=== PATIENT | male | born 1930 | race Caucasian/White ===

== ENCOUNTER 2017-11-09 13:42 | Observation (INO) | payer MEDICARE ==
[~2017-11-09] VITALS: Ht 175.3 cm; Wt 90.5 kg
[2017-11-09] VITALS (8 sets, daily range): BP systolic 119–141; BP diastolic 61–75; PULSE 59–100; RESP 16–18; TEMP 97.2–97.9; O2SAT 96–100
[~2017-11-09 13:42] MED LIST: ASPI81TA82 PO; AUGM875T PO; COEN100C5 PO; FISH1000 PO; LISI-363 PO; PARO20TA PO; PRAV10 PO; TAB-TAB PO; VITA250L PO
--- NOTE | 2017-11-09 14:34 | PD ---
HPI Chief Complaint: General Weakness Time Seen by Provider: 13:58 Travel History International Travel<30 days: No Contact w/Intl Traveler<30days: No Traveled to known affect area: No History of Present Illness HPI 87-year-old male with a history of hypertension, macular degeneration presents emergency department complaining of diffuse weakness that is been persistent for 2 weeks. Patient states that he was taking the trash out this morning and his legs felt weak and he "could not take it anymore". states that patient has had shuffling feet when walking and he has been falling asleep more frequently. states that he has lost interest in TV when he used to be " all about the TV". Patient states that this is secondary to his macular degeneration and cannot see the television. States he is okay with his ADLs but if he is working around the house for 5 minutes he gets for out I must sit down. states that patient does snore and she has noticed that he has been breathing hard for 2 months. Says that he sleeps frequently throughout the day and so does not sleep at night frequently. He takes paroxetine for mood and hydrochlorothiazide/lisinopril for blood pressure. Denies any cardiac history. Denies pulmonary history. Says that [facility] and his primary care physician is Dr. Vela. Patient last saw his primary care physician in June. PFSH Past Medical History Anxiety: Yes Depression: Yes High Cholesterol: Yes Hypertension: Yes Past Surgical History Abdominal Surgery: Yes (BILAT HERNIAS) Appendectomy: Yes Eye Surgery: Yes (IMPLANT LENS) Pacemaker: No Social History Alcohol Use: No Tobacco Use: No Substance Use: No Allergies-Medications (Allergen,Severity, Reaction): Coded Allergies: No Known Allergies (Unverified Adverse Reaction, Unknown, 11/09/17) Reported Meds & Prescriptions Reported Meds & Active Scripts Active Reported Lisinopril-Hctz 20-12.5 Mg Tab 1 Tab PO DAILY Paxil (Paroxetine HCl) 40 Mg Tablet Review of Systems Except as stated in HPI: all other systems reviewed are Neg Physical Exam Narrative GENERAL: wd, wn in NAD, hard of hearing SKIN: Focused skin assessment warm/dry. HEAD: Atraumatic. Normocephalic. EYES: Pupils equal and round. No scleral icterus. No injection or drainage. PERRLA ENT: No nasal bleeding or discharge. Mucous membranes pink and moist. NECK: Trachea midline. No JVD. CARDIOVASCULAR: Regular rate and rhythm. No murmur appreciated. RESPIRATORY: No accessory muscle use. Clear to auscultation. Breath sounds equal bilaterally. GASTROINTESTINAL: Abdomen soft, non-tender, nondistended. Hepatic and splenic margins not palpable. MUSCULOSKELETAL: No obvious deformities. No clubbing. No cyanosis. No edema. NEUROLOGICAL: Awake and alert. No obvious cranial nerve deficits. Motor grossly within normal limits. Normal speech. Grade 5/5 upper and lower extremities PSYCHIATRIC: Appropriate mood and affect; insight and judgment normal. Data Data Last Documented VS Vital Signs Date Time Temp Pulse Resp B/P (MAP) Pulse Ox O2 Delivery O2 Flow Rate FiO2 11/09/17 17:26 85 119/61 (80) 11/09/17 13:58 18 96 Room Air 11/09/17 13:46 97.2 Orders Orders Electrocardiogram (11/09/17 14:24) Complete Blood Count With Diff (11/09/17 14:24) Comprehensive Metabolic Panel (11/09/17 14:24) Magnesium (Mg) (11/09/17 14:24) Act Partial Throm Time (Ptt) (11/09/17 14:24) Prothrombin Time / Inr (Pt) (11/09/17 14:24) Urinalysis - C+S If Indicated (11/09/17 14:24) Chest, Single Ap (11/09/17 14:24) Ct Brain W/O Iv Contrast(Rout) (11/09/17 ) Sodium Chlorid 0.9% 500 Ml Inj (Ns 500 M (11/09/17 14:45) Orthostatic Vital Signs (11/09/17 17:10) Admit Order (Ed Use Only) (11/09/17 18:16) Labs Laboratory Tests Test 11/09/17 14:45 11/09/17 15:39 White Blood Count 4.7 TH/MM3 Red Blood Count 4.24 MIL/MM3 Hemoglobin 10.1 GM/DL Hematocrit 30.7 % Mean Corpuscular Volume 72.4 FL Mean Corpuscular Hemoglobin 23.7 PG Mean Corpuscular Hemoglobin Concent 32.7 % Red Cell Distribution Width 18.6 % Platelet Count 315 TH/MM3 Mean Platelet Volume 7.1 FL Neutrophils (%) (Auto) 60.2 % Lymphocytes (%) (Auto) 23.6 % Monocytes (%) (Auto) 11.0 % Eosinophils (%) (Auto) 4.1 % Basophils (%) (Auto) 1.1 % Neutrophils # (Auto) 2.8 TH/MM3 Lymphocytes # (Auto) 1.1 TH/MM3 Monocytes # (Auto) 0.5 TH/MM3 Eosinophils # (Auto) 0.2 TH/MM3 Basophils # (Auto) 0.1 TH/MM3 CBC Comment DIFF FINAL Differential Comment Prothrombin Time 9.9 SEC Prothromb Time International Ratio 1.0 RATIO Activated Partial Thromboplast Time 25.9 SEC Blood Urea Nitrogen 28 MG/DL Creatinine 1.40 MG/DL Random Glucose 96 MG/DL Total Protein 6.9 GM/DL Albumin 3.3 GM/DL Calcium Level 8.7 MG/DL Magnesium Level 2.3 MG/DL Alkaline Phosphatase 76 U/L Aspartate Amino Transf (AST/SGOT) 42 U/L Alanine Aminotransferase (ALT/SGPT) 49 U/L Total Bilirubin 0.3 MG/DL Sodium Level 137 MEQ/L Potassium Level 3.8 MEQ/L Chloride Level 102 MEQ/L Carbon Dioxide Level 24.2 MEQ/L Anion Gap 11 MEQ/L Estimat Glomerular Filtration Rate 48 ML/MIN Urine Color LIGHT-YELLOW Urine Turbidity CLEAR Urine pH 5.5 Urine Specific [place] 1.016 Urine Protein NEG mg/dL Urine Glucose (UA) NEG mg/dL Urine Ketones NEG mg/dL Urine Occult Blood NEG Urine Nitrite NEG Urine Bilirubin NEG Urine Urobilinogen LESS THAN 2.0 MG/DL Urine Leukocyte Esterase NEG Urine WBC LESS THAN 1 /hpf Urine Hyaline Casts 7 /lpf Urine Mucus FEW /lpf Microscopic Urinalysis Comment CULT NOT INDICATED MDM Medical Decision Making Medical Screen Exam Complete: Yes Emergency Medical Condition: Yes Differential Diagnosis UTI, generalized weakness, deconditioning, SOPHIA, Parkinson's, depression Narrative Course 87-year-old male with a history of hypertension, macular degeneration presents emergency department complaining of diffuse weakness that is been persistent for 2 weeks. Patient states that he was taking the trash out this morning and his legs felt weak and he "could not take it anymore". states that patient has had shuffling feet when walking and he has been falling asleep more frequently. states that he has lost interest in TV when he used to be " all about the TV". Patient states that this is secondary to his macular degeneration and cannot see the television. States he is okay with his ADLs but if he is working around the house for 5 minutes he gets for out I must sit down. states that patient does snore and she has noticed that he has been breathing hard for 2 months. Says that he sleeps frequently throughout the day and so does not sleep at night frequently. He takes paroxetine for mood and hydrochlorothiazide/lisinopril for blood pressure. Denies any cardiac history. Denies pulmonary history. Says that he [facility] and his primary care physician is Dr. Vela. Patient last saw his primary care physician in June. His last colonoscopy was several years ago. No abnormalities found at this evaluation according to patient. CBC & BMP Diagram 11/09/17 14:45 Total Protein 6.9, Albumin 3.3 L, Calcium Level 8.7, Magnesium Level 2.3, Alkaline Phosphatase 76, Aspartate Amino Transf (AST/SGOT) 42 H, Alanine Aminotransferase (ALT/SGPT) 49, Total Bilirubin 0.3 Last Impressions Chest X-Ray 11/09/17 1424 Signed Impressions: Service Date/Time: Thursday, November 09, 2017 15:02 - CONCLUSION: Normal examination. Juan Verdugo MD Head CT 11/09/17 0000 Signed Impressions: Service Date/Time: Thursday, November 09, 2017 14:50 - CONCLUSION: Normal examination except for mild atrophy. The left maxillary sinus is nearly completely opacified. Extensive fluid in the left frontal sinus. Juan Verdugo MD Last labs for comparison were in 2016. No anemia present at that time. Kidney function slightly decreased since 2016. Patient admitted for symptomatic anemia and GI bleed. Consider GI evaluation. Trend CBC. I spoke with patient and and they agreed to the admission. Spoke with Dr. Laureano who accepted the admission. [facility] Point of Care Internal Pos. & Neg. Controls: Passed Fecal Specimen Occult Blood: Positive Diagnosis Primary Impression: Heme positive stool Additional Impression: Symptomatic anemia Admitting Information Admitting Physician Requests: Observation Condition: Stable Fatuma Guerra Nov 09, 2017 14:34
[2017-11-09] MEDS ORDERED: SODIUM CHLORID 0.9% 500 ML INJ 500 ML IV ONE (14:45)
[2017-11-09] MEDS ORDERED: LISI20TA PO (14:49)
[2017-11-09] MEDS ORDERED: PAXI40TA9 (14:49)
--- NOTE | 2017-11-09 15:09 | RADRPT ---
EXAM DATE/TIME: 11/09/2017 14:50 [facility] COMPARISON: No previous studies available for comparison. INDICATIONS : Generealized weakness. RADIATION DOSE: 37.76 CTDIvol (mGy) MEDICAL HISTORY : Hypertension. SURGICAL HISTORY : Appendectomy. ENCOUNTER: Initial ACUITY: 1 day PAIN SCALE: 3/10 LOCATION: cranial TECHNIQUE: Multiple contiguous axial images were obtained of the head. Using automated exposure control and adj ustment of the mA and/or kV according to patient size, radiation dose was kept as low as reasonably a chievable to obtain optimal diagnostic quality images. DICOM format image data is available electro nically for review and comparison. FINDINGS: CEREBRUM: The ventricles are normal for age. No evidence of midline shift, mass lesion, hemorrhage or acute in farction. No extra-axial fluid collections are seen. POSTERIOR FOSSA: The cerebellum and brainstem are intact. The 4th ventricle is midline. The cerebellopontine angle i s unremarkable. EXTRACRANIAL: The visualized portion of the orbits is intact. The left maxillary sinus is completely opacified SKULL: The calvaria is intact. No evidence of skull fracture. CONCLUSION: Normal examination except for mild atrophy. The left maxillary sinus is nearly completely opacified. Extensive fluid in the left frontal sinus. Juan Verdugo MD on November 09, 2017 at 15:06 Board Certified Radiologist. This report was verified electronically.
[2017-11-09 15:26] LABS: AUTOMATED NEUTROPHIL # 2.8 TH/MM3 (1.8-7.7); BASOPHIL # 0.1 TH/MM3 (0-0.2); BASOPHIL % 1.1 % (0.0-2.0); EOSINOPHIL # 0.2 TH/MM3 (0-0.4); EOSINOPHIL % 4.1 % (0.0-4.0); HEMATOCRIT 30.7 % (39.0-51.0); HEMOGLOBIN 10.1 GM/DL (13.0-17.0); LYMPH % 23.6 % (9.0-44.0); LYMPHOCYTE # 1.1 TH/MM3 (1.0-4.8); MEAN CELL VOLUME 72.4 FL (80.0-100.0); MEAN CORPUSCULAR HEMOGLOBIN 23.7 PG (27.0-34.0); MEAN CORPUSCULAR HGB CONC 32.7 % (32.0-36.0); MEAN PLATELET VOLUME 7.1 FL (7.0-11.0); MONOCYTE # 0.5 TH/MM3 (0-0.9); NEUT % 60.2 % (16.0-70.0); PLATELET COUNT 315 TH/MM3 (150-450); RED BLOOD COUNT 4.24 MIL/MM3 (4.50-5.90); RED CELL DISTRIBUTION WIDTH 18.6 % (11.6-17.2); WHITE BLOOD COUNT 4.7 TH/MM3 (4.0-11.0)
[2017-11-09 15:34] LABS: PROTHROMBIN TIME - PATIENT 9.9 SEC (9.8-11.6)
[2017-11-09 15:40] LABS: ALBUMIN 3.3 GM/DL (3.4-5.0); AST (GOT) 42 U/L (15-37); BICARBONATE 24.2 MEQ/L (21.0-32.0); BLOOD UREA NITROGEN 28 MG/DL (7-18); CALCIUM 8.7 MG/DL (8.5-10.1); CHLORIDE 102 MEQ/L (98-107); GLOMERULAR FILTRATION RATE 48 ML/MIN (>89); GLUCOSE,RANDOM 96 MG/DL (74-106); MAGNESIUM 2.3 MG/DL (1.5-2.5); SODIUM (NA) 137 MEQ/L (136-145)
[2017-11-09 15:43] LABS: ALKALINE PHOSPHATASE 76 U/L (45-117); ALT (GPT) 49 U/L (12-78); TOTAL BILIRUBIN ADULT 0.3 MG/DL (0.2-1.0); TOTAL PROTEIN 6.9 GM/DL (6.4-8.2)
--- NOTE | 2017-11-09 15:59 | RADRPT ---
EXAM DATE/TIME: 11/09/2017 15:02 [facility] COMPARISON: CHEST SINGLE AP, August 02, 2015, 9:26. INDICATIONS : Shortness of breath. MEDICAL HISTORY : Hypertension. SURGICAL HISTORY : Appendectomy. ENCOUNTER: Initial ACUITY: 2 weeks PAIN SCORE: 0/10 LOCATION: Bilateral chest FINDINGS: A single view of the chest demonstrates the lungs to be symmetrically aerated without evidence of mas s, infiltrate or effusion. The cardiomediastinal contours are unremarkable. Osseous structures are intact. CONCLUSION: Normal examination. Juan Verdugo MD on November 09, 2017 at 15:56 Board Certified Radiologist. This report was verified electronically.
[2017-11-09 16:22] LABS: BILIRUBIN, URINE NEG (NEG); BLOOD, URINE NEG (NEG); GLUCOSE,URINE NEG (NEG); HYALINE CAST, URINE 7 /lpf (RARE); KETONE, URINE NEG (NEG); MUCUS URINE FEW /lpf (OCC); NITRITE,URINE NEG (NEG); PH, URINE 5.5 (5.0-8.5); URINE COLOR LIGHT-YELLOW (YELLW/STRAW); URINE LEUKOCYTE ESTERASE NEG (NEG)
--- NOTE | 2017-11-09 18:05 | PD ---
Data Data Last Documented VS Vital Signs Date Time Temp Pulse Resp B/P (MAP) Pulse Ox O2 Delivery O2 Flow Rate FiO2 11/09/17 17:26 85 119/61 (80) 11/09/17 13:58 18 96 Room Air 11/09/17 13:46 97.2 Orders Orders Electrocardiogram (11/09/17 14:24) Complete Blood Count With Diff (11/09/17 14:24) Comprehensive Metabolic Panel (11/09/17 14:24) Magnesium (Mg) (11/09/17 14:24) Act Partial Throm Time (Ptt) (11/09/17 14:24) Prothrombin Time / Inr (Pt) (11/09/17 14:24) Urinalysis - C+S If Indicated (11/09/17 14:24) Chest, Single Ap (11/09/17 14:24) Ct Brain W/O Iv Contrast(Rout) (11/09/17 ) Sodium Chlorid 0.9% 500 Ml Inj (Ns 500 M (11/09/17 14:45) Orthostatic Vital Signs (11/09/17 17:10) Labs Laboratory Tests Test 11/09/17 14:45 11/09/17 15:39 White Blood Count 4.7 TH/MM3 Red Blood Count 4.24 MIL/MM3 Hemoglobin 10.1 GM/DL Hematocrit 30.7 % Mean Corpuscular Volume 72.4 FL Mean Corpuscular Hemoglobin 23.7 PG Mean Corpuscular Hemoglobin Concent 32.7 % Red Cell Distribution Width 18.6 % Platelet Count 315 TH/MM3 Mean Platelet Volume 7.1 FL Neutrophils (%) (Auto) 60.2 % Lymphocytes (%) (Auto) 23.6 % Monocytes (%) (Auto) 11.0 % Eosinophils (%) (Auto) 4.1 % Basophils (%) (Auto) 1.1 % Neutrophils # (Auto) 2.8 TH/MM3 Lymphocytes # (Auto) 1.1 TH/MM3 Monocytes # (Auto) 0.5 TH/MM3 Eosinophils # (Auto) 0.2 TH/MM3 Basophils # (Auto) 0.1 TH/MM3 CBC Comment DIFF FINAL Differential Comment Prothrombin Time 9.9 SEC Prothromb Time International Ratio 1.0 RATIO Activated Partial Thromboplast Time 25.9 SEC Blood Urea Nitrogen 28 MG/DL Creatinine 1.40 MG/DL Random Glucose 96 MG/DL Total Protein 6.9 GM/DL Albumin 3.3 GM/DL Calcium Level 8.7 MG/DL Magnesium Level 2.3 MG/DL Alkaline Phosphatase 76 U/L Aspartate Amino Transf (AST/SGOT) 42 U/L Alanine Aminotransferase (ALT/SGPT) 49 U/L Total Bilirubin 0.3 MG/DL Sodium Level 137 MEQ/L Potassium Level 3.8 MEQ/L Chloride Level 102 MEQ/L Carbon Dioxide Level 24.2 MEQ/L Anion Gap 11 MEQ/L Estimat Glomerular Filtration Rate 48 ML/MIN Urine Color LIGHT-YELLOW Urine Turbidity CLEAR Urine pH 5.5 Urine Specific [place] 1.016 Urine Protein NEG mg/dL Urine Glucose (UA) NEG mg/dL Urine Ketones NEG mg/dL Urine Occult Blood NEG Urine Nitrite NEG Urine Bilirubin NEG Urine Urobilinogen LESS THAN 2.0 MG/DL Urine Leukocyte Esterase NEG Urine WBC LESS THAN 1 /hpf Urine Hyaline Casts 7 /lpf Urine Mucus FEW /lpf Microscopic Urinalysis Comment CULT NOT INDICATED MDM Supervised Visit with CARMEN: Yes Narrative Course I, Dr. Lawrence, have reviewed the advance practice practitioner's documentation and am in agreement, met with the patient face to face, made the diagnosis, and the medical decision making was done by me. *My assessment and Findings: Workup reviewed. Patient evaluated. He has GI bleed with symptomatic anemia, hemoglobin 10.1. He was significantly higher at last check although this was a while ago. Given his age and frailty and lack of GI follow-up I think it prudent to be hospitalized for evaluation rather than outpatient follow-up. Diagnosis Primary Impression: Heme positive stool Additional Impression: Symptomatic anemia Admitting Information Admitting Physician Requests: Admit Condition: Stable Johnny Lawrence MD Nov 09, 2017 18:05
[2017-11-09] MEDS ORDERED: oxyCODONE/ACETAMINOPHEN 5 MG/325 MG TAB PO PRN (18:30)
[2017-11-09] MEDS ORDERED: MORPHINE SULFATE 2 MG/ML SYRINGE IV PUSH PRN ×3 (18:30)
[2017-11-09] MEDS ORDERED: SODIUM CHLORIDE 0.9% FLUSH 10 ML FLUSH IV FLUSH PRN ×2 (18:30)
[2017-11-09] MEDS ORDERED: METOCLOPRAMIDE HCL 10 MG/2 ML VIAL IV PUSH PRN (18:30)
[2017-11-09] MEDS ORDERED: NALOXONE HCL 0.4 MG/ML AMP IV PUSH PRN (18:30)
[2017-11-09] MEDS ORDERED: SENNOSIDES 8.6 MG TAB PO PRN (18:30)
[2017-11-09] MEDS ORDERED: ACETAMINOPHEN 325 MG TAB PO PRN (18:30)
[2017-11-09] MEDS ORDERED: oxyCODONE/ACETAMINOPHEN 10 MG/325 MG TAB PO PRN (18:30)
[2017-11-09] MEDS ORDERED: MAGNESIUM HYDROXIDE SUSP 30 ML CUP PO PRN (18:30)
[2017-11-09] MEDS ORDERED: LACTULOSE SYRUP 20 GM/30 ML CUP PO PRN (18:30)
[2017-11-09] MEDS ORDERED: BISACODYL 10 MG SUPP RECTAL PRN (18:30)
[2017-11-09] MEDS ORDERED: ONDANSETRON HCL 4 MG/2 ML VIAL IVP PRN (18:30)
--- NOTE | 2017-11-09 19:33 | HHI.HP ---
[facility] Service [facility] Primary Care Physician [facility] Admission Diagnosis symptomatic anemia, GIB Diagnoses: (1) GI bleed Diagnosis: Principal (2) Symptomatic anemia Diagnosis: Principal (3) Renal insufficiency Diagnosis: Principal (4) Weakness Diagnosis: Principal Travel History International Travel<30 Days: No Contact w/Intl Traveler <30 Da: No Traveled to Known Affected Are: No History of Present Illness This is an 87-year-old male with a PMH of HTN, Hyperlipidemia, Macular Degeneration, Anxiety and Depression who presented to the ER with complaints of generalized weakness x2 wks. Pt states he was taking out the garbage today when he felt significant weakness. Notes increasing lethargy for the last 3-4 days. Denies fever, chills, chest pain, SOB or sick contacts. On arrival, BP 129/64, HR 100, O2 sat 100% on RA, Afebrile. Hemoglobin 10.1, previously 13.7 on 08/02/2015. Creatinine 1.40, previously 1.18 on 08/02/2015. INR 1.0. UA negative for UTI. CXR were normal. CT Head normal. Hemoccult + on exam. Review of Systems Except as stated in HPI: all other systems reviewed are Neg ROS: 14 point review of systems otherwise negative. Past Family Social History Past Medical History PMH: HTN, Hyperlipidemia, Macular Degeneration, Anxiety and Depression Past Surgical History PAST SURGICAL HISTORY: Bilateral Hernia Replacements, Appendectomy, Lens Implant Allergies: Coded Allergies: No Known Allergies (Unverified Allergy, Unknown, 11/09/17) Family History PAST FAMILY HISTORY: Reviewed. No h/o DM or CAD Social History PAST SOCIAL HISTORY: Negative for alcohol, tobacco or drugs Physical Exam Vital Signs Vital Signs Date Time Temp Pulse Resp B/P (MAP) Pulse Ox O2 Delivery O2 Flow Rate FiO2 11/09/17 18:40 66 18 134/65 (88) 99 Room Air 11/09/17 17:26 85 119/61 (80) 11/09/17 17:24 73 130/75 (93) 11/09/17 17:23 71 141/69 (93) 11/09/17 13:58 87 18 130/61 (84) 96 Room Air 11/09/17 13:46 97.2 100 18 129/64 (85) 100 Physical Exam PE: GENERAL: Pleasant elderly white male in no acute distress. HEENT: PERRLA, EOMI. No scleral icterus or conjunctival pallor. No lid lag or facial droop. CARDIOVASCULAR: Regular rate and rhythm. No obvious murmurs to auscultation. No chest tenderness to palpation. RESPIRATORY: No obvious rhonchi or wheezing. Clear to auscultation. Breath sounds equal bilaterally. GASTROINTESTINAL: Abdomen soft, non-tender, nondistended. BS normal. MUSCULOSKELETAL: Extremities without clubbing, cyanosis, or edema. No obvious deformities. NEUROLOGICAL: Awake, alert and oriented x4. No focal neurologic deficits. Moving both upper and lower extremities spontaneously. Laboratory Laboratory Tests Test 11/09/17 14:45 11/09/17 15:39 White Blood Count 4.7 Red Blood Count 4.24 Hemoglobin 10.1 Hematocrit 30.7 Mean Corpuscular Volume 72.4 Mean Corpuscular Hemoglobin 23.7 Mean Corpuscular Hemoglobin Concent 32.7 Red Cell Distribution Width 18.6 Platelet Count 315 Mean Platelet Volume 7.1 Neutrophils (%) (Auto) 60.2 Lymphocytes (%) (Auto) 23.6 Monocytes (%) (Auto) 11.0 Eosinophils (%) (Auto) 4.1 Basophils (%) (Auto) 1.1 Neutrophils # (Auto) 2.8 Lymphocytes # (Auto) 1.1 Monocytes # (Auto) 0.5 Eosinophils # (Auto) 0.2 Basophils # (Auto) 0.1 CBC Comment DIFF FINAL Differential Comment Prothrombin Time 9.9 Prothromb Time International Ratio 1.0 Activated Partial Thromboplast Time 25.9 Blood Urea Nitrogen 28 Creatinine 1.40 Random Glucose 96 Total Protein 6.9 Albumin 3.3 Calcium Level 8.7 Magnesium Level 2.3 Alkaline Phosphatase 76 Aspartate Amino Transf (AST/SGOT) 42 Alanine Aminotransferase (ALT/SGPT) 49 Total Bilirubin 0.3 Sodium Level 137 Potassium Level 3.8 Chloride Level 102 Carbon Dioxide Level 24.2 Anion Gap 11 Estimat Glomerular Filtration Rate 48 Urine Color LIGHT-YELLOW Urine Turbidity CLEAR Urine pH 5.5 Urine Specific [place] 1.016 Urine Protein NEG Urine Glucose (UA) NEG Urine Ketones NEG Urine Occult Blood NEG Urine Nitrite NEG Urine Bilirubin NEG Urine Urobilinogen LESS THAN 2.0 Urine Leukocyte Esterase NEG Urine WBC LESS THAN 1 Urine Hyaline Casts 7 Urine Mucus FEW Microscopic Urinalysis Comment CULT NOT INDICATED Result Diagram: 11/09/17 1445 11/09/17 1445 Caprini VTE Risk Assessment Caprini VTE Risk Assessment: No/Low Risk (score <= 1) Caprini Risk Assessment Model Point Value = 1 Point Value = 2 Point Value = 3 Point Value = 5 Age 41-60 Minor surgery BMI > 25 kg/m2 Swollen legs Varicose veins or History of unexplained or recurrent spontaneous Oral contraceptives or hormone replacement Sepsis (< 1 month) Serious lung disease, including pneumonia (< 1 month) Abnormal pulmonary function Acute myocardial infarction Congestive heart failure (< 1 month) History of inflammatory bowel disease Medical patient at bed rest Age 61-74 Arthroscopic surgery Major open surgery (> 45 min) Laparoscopic surgery (> 45 min) Malignancy Confined to bed (> 72 hours) Immobilizing plaster cast Central venous access Age >= 75 History of VTE Family history of VTE Factor V Leiden Prothrombin [id number] Lupus anticoagulant Anticardiolipin antibodies Elevated serum homocysteine Heparin-induced thrombocytopenia Other congenital or acquired thrombophilia Stroke (< 1 month) Elective arthroplasty Hip, pelvis, or leg fracture Acute spinal cord injury (< 1 month) Prophylaxis Regimen Total Risk Factor Score Risk Level Prophylaxis Regimen 0-1 Low Early ambulation 2 Moderate Order ONE of the following: *Sequential Compression Device (SCD) *Heparin 5000 units SQ BID 3-4 Higher Order ONE of the following medications: *Heparin 5000 units SQ TID *Enoxaparin/Lovenox 40 mg SQ daily (WT < 150 kg, CrCl > 30 mL/min) *Enoxaparin/Lovenox 30 mg SQ daily (WT < 150 kg, CrCl > 10-29 mL/min) *Enoxaparin/Lovenox 30 mg SQ BID (WT < 150 kg, CrCl > 30 mL/min) AND/OR *Sequential Compression Device (SCD) 5 or more Highest Order ONE of the following medications: *Heparin 5000 units SQ TID (Preferred with Epidurals) *Enoxaparin/Lovenox 40 mg SQ daily (WT < 150 kg, CrCl > 30 mL/min) *Enoxaparin/Lovenox 30 mg SQ daily (WT < 150 kg, CrCl > 10-29 mL/min) *Enoxaparin/Lovenox 30 mg SQ BID (WT < 150 kg, CrCl > 30 mL/min) AND *Sequential Compression Device (SCD) Assessment and Plan Problem List: (1) GI bleed ICD Code: K92.2 - Gastrointestinal hemorrhage, unspecified (2) Symptomatic anemia ICD Code: D64.9 - Anemia, unspecified Status: Acute (3) Renal insufficiency ICD Code: N28.9 - Disorder of kidney and ureter, unspecified (4) Weakness ICD Code: R53.1 - Weakness Assessment and Plan A/P: 1. GI Bleed: Hemoccult + on exam, Hgb 10.1, started on Protonix PO bid, Consult GI for further evaluation/intervention, check repeat Hgb in am. 2. Symptomatic Anemia: Hgb 10.1, previously 13.7 on 08/02/15, +GI Bleed as above, recheck Hgb in am, transfuse if less than 7 or pt hemodynamically unstable. 3. Weakness: likely secondary to above, consult PT for eval/tx. IVF for hydration. 4. KITTY: Creatinine 1.40, previously 1.18 on 08/02/15, U/a negative for UTI, IVF for hydration, repeat labs in am 5. DVT Prophylaxis: SCD/Teds 6. Social work for DC planning as needed. 7. Case discussed at length with the ER physician, lab/record/imaging reviewed by me. Chastity Jiang MD Nov 09, 2017 19:32
[2017-11-09] MEDS: SODIUM CHLOR 0.9% 1000 ML INJ 1,000 ML IV SCH (20:18)
[2017-11-09] MEDS: PANTOPRAZOLE SOD 40 MG DELAYED RELEASE TAB PO SCH (20:18)
[2017-11-09] MEDS: DOCUSATE SODIUM 50 MG/SENNA 8.6 MG TAB PO SCH (20:18)
[2017-11-09] MEDS: SODIUM CHLORIDE 0.9% FLUSH 10 ML FLUSH IV FLUSH SCH (20:20)
[2017-11-09] MEDS ORDERED: SODIUM CHLORIDE 0.9% FLUSH 10 ML FLUSH IV FLUSH SCH (21:00)
--- NOTE | 2017-11-09 23:37 | EKG ---
Date Performed: 11/09/2017 Time Performed: 14:34:41 PTAGE: 87 years EKG: Sinus rhythm NORMAL ECG PREVIOUS TRACING : 08/02/2015 09.16 DOCTOR: Humza Wilcox Interpretating Date/Time 11/09/2017 23:35:33
[2017-11-10] VITALS (12 sets, daily range): BP systolic 109–133; BP diastolic 55–65; PULSE 60–91; RESP 17–18; TEMP 97.4–98.2; O2SAT 94–98
[2017-11-10] MEDS: SODIUM CHLOR 0.9% 1000 ML INJ 1,000 ML IV SCH ×2 (06:13→14:16)
[2017-11-10 08:05] LABS: ALBUMIN 2.9 GM/DL (3.4-5.0); ALT (GPT) 41 U/L (12-78); AST (GOT) 40 U/L (15-37); BICARBONATE 22.2 MEQ/L (21.0-32.0); BLOOD UREA NITROGEN 22 MG/DL (7-18); CALCIUM 8.1 MG/DL (8.5-10.1); CHLORIDE 106 MEQ/L (98-107); CREATININE 1.18 MG/DL (0.60-1.30); GLOMERULAR FILTRATION RATE 59 ML/MIN (>89); GLUCOSE,RANDOM 79 MG/DL (74-106); MAGNESIUM 2.2 MG/DL (1.5-2.5); PHOSPHORUS 2.1 MG/DL (2.5-4.9); SODIUM (NA) 136 MEQ/L (136-145)
[2017-11-10 08:14] LABS: ALKALINE PHOSPHATASE 65 U/L (45-117); FREE T4 1.05 NG/DL (0.76-1.46); TOTAL BILIRUBIN ADULT 0.6 MG/DL (0.2-1.0); TOTAL PROTEIN 6.2 GM/DL (6.4-8.2)
[2017-11-10 08:40] LABS: AUTOMATED NEUTROPHIL # 1.7 TH/MM3 (1.8-7.7); BASOPHIL # 0.1 TH/MM3 (0-0.2); BASOPHIL % 1.7 % (0.0-2.0); EOSINOPHIL # 0.2 TH/MM3 (0-0.4); EOSINOPHIL % 6.3 % (0.0-4.0); HEMATOCRIT 30.3 % (39.0-51.0); HEMOGLOBIN 9.6 GM/DL (13.0-17.0); LYMPH % 25.6 % (9.0-44.0); LYMPHOCYTE # 0.8 TH/MM3 (1.0-4.8); MEAN CELL VOLUME 73.7 FL (80.0-100.0); MEAN CORPUSCULAR HEMOGLOBIN 23.5 PG (27.0-34.0); MEAN CORPUSCULAR HGB CONC 31.8 % (32.0-36.0); MONO % 13.4 % (0.0-8.0); MONOCYTE # 0.4 TH/MM3 (0-0.9); PLATELET COUNT 264 TH/MM3 (150-450); RED BLOOD COUNT 4.11 MIL/MM3 (4.50-5.90); RED CELL DISTRIBUTION WIDTH 18.4 % (11.6-17.2); WHITE BLOOD COUNT 3.3 TH/MM3 (4.0-11.0)
[2017-11-10] MEDS ORDERED: NON-FORMULARY DRUG (Lisinopril-Hctz 1 TAB) PO SCH (09:00)
[2017-11-10] MEDS: SODIUM CHLORIDE 0.9% FLUSH 10 ML FLUSH IV FLUSH SCH ×2 (09:00→19:27)
[2017-11-10] MEDS ORDERED: POLYETHYLENE GLYCOL 17 GM PKG PO SCH (09:00)
[2017-11-10] MEDS: DOCUSATE SODIUM 50 MG/SENNA 8.6 MG TAB PO SCH ×2 (10:11→19:27)
[2017-11-10] MEDS: PANTOPRAZOLE SOD 40 MG DELAYED RELEASE TAB PO SCH ×2 (10:11→19:27)
[2017-11-10] MEDS: PARoxetine HCL 20 MG TAB PO SCH (10:15)
[2017-11-10 10:50] LABS: HEMOGLOBIN A1C 5.7 % (4.3-6.0)
[2017-11-10 12:40] LABS: % SATURATION IRON PROFILE 7.9 % (20-50); IRON (FE) 29 MCG/DL (65-175); TOTAL IRON BINDING CAPACITY 367 MCG/DL (250-450)
[2017-11-10 13:04] LABS: FERRITIN 19 NG/ML (26-388)
[2017-11-10 13:06] LABS: FOLATE GREATER THAN 20.0 NG/ML (3.1-17.5)
--- NOTE | 2017-11-10 13:49 | HHI.PR ---
Subjective Remarks The patient was resting comfortably in bed. He denied any pain. He said he had a large bowel movement secondary to the MiraLAX. He was anticipating the procedure on Sunday. He said he drinks about 2 cups of coffee daily. He does not take any NSAIDs. He does not drink alcohol. Discussed with nursing and family. Objective Vitals Vital Signs Date Time Temp Pulse Resp B/P (MAP) Pulse Ox O2 Delivery O2 Flow Rate FiO2 11/10/17 12:09 97.6 79 18 133/62 (85) 98 11/10/17 08:15 97.4 60 18 123/60 (81) 98 11/10/17 06:13 98 11/10/17 04:33 97.9 91 18 125/65 (85) 97 11/10/17 02:11 60 11/09/17 23:38 97.9 59 18 128/71 (90) 98 11/09/17 19:59 97.9 68 16 140/67 (91) 98 11/09/17 18:40 66 18 134/65 (88) 99 Room Air 11/09/17 17:26 85 119/61 (80) 11/09/17 17:24 73 130/75 (93) 11/09/17 17:23 71 141/69 (93) 11/09/17 13:58 87 18 130/61 (84) 96 Room Air 11/09/17 13:46 97.2 100 18 129/64 (85) 100 I/O 11/09/17 11/09/17 11/09/17 11/10/17 11/10/17 11/10/17 07:00 15:00 23:00 07:00 15:00 23:00 Intake Total 500 ml Balance 500 ml Intake IV Total 500 ml Result Diagram: 11/10/17 0755 11/10/17 0545 Imaging Last Impressions Chest X-Ray 11/09/17 1424 Signed Impressions: Service Date/Time: Thursday, November 09, 2017 15:02 - CONCLUSION: Normal examination. Juan Verdugo MD Head CT 11/09/17 0000 Signed Impressions: Service Date/Time: Thursday, November 09, 2017 14:50 - CONCLUSION: Normal examination except for mild atrophy. The left maxillary sinus is nearly completely opacified. Extensive fluid in the left frontal sinus. Juan Verdugo MD Objective Remarks GENERAL: Resting comfortably. HEENT: PERRLA, EOMI. No scleral icterus or conjunctival pallor. No lid lag or facial droop. CARDIOVASCULAR: Regular rate and rhythm. Grade 2 systolic murmur appreciated. RESPIRATORY: No obvious rhonchi or wheezing. Clear to auscultation. Breath sounds equal bilaterally. GASTROINTESTINAL: Abdomen soft, non-tender, nondistended. BS normal. MUSCULOSKELETAL: Extremities without clubbing, cyanosis, or edema. No obvious deformities. NEUROLOGICAL: Awake, alert and oriented x4. No focal neurologic deficits. Moving both upper and lower extremities spontaneously. PSYCH: Mood and affect appropriate. Medications and IVs Current Medications Medications (Trade) Dose Ordered Sig/Gerber Route Start Time Stop Time Status Last Admin Sodium Chloride 1,000 ml @ 100 mls/hr Q10H IV 11/09/17 18:16 11/10/17 06:13 (Protonix) 40 mg BID PO 11/09/17 21:00 11/10/17 10:11 (NS Flush) 2 ml UNSCH PRN IV FLUSH 11/09/17 18:30 (NS Flush) 2 ml BID IV FLUSH 11/09/17 21:00 (Zofran Inj) 4 mg Q6H PRN IVP 11/09/17 18:30 (Reglan Inj) 5 mg Q6H PRN IV PUSH 11/09/17 18:30 (Tylenol) 650 mg Q6H PRN PO 11/09/17 18:30 (Percocet 5-325 Mg) 1 tab Q6H PRN PO 11/09/17 18:30 (Percocet 10-325 Mg) 1 tab Q6H PRN PO 11/09/17 18:30 (Morphine Inj) 2 mg Q3H PRN IV PUSH 11/09/17 18:30 (Morphine Inj) 4 mg Q3H PRN IV PUSH 11/09/17 18:30 (Morphine Inj) 4 mg Q3H PRN IV PUSH 11/09/17 18:30 (Narcan Inj) 0.4 mg UNSCH PRN IV PUSH 11/09/17 18:30 (Josey-Colace) 1 tab BID PO 11/09/17 21:00 11/10/17 10:11 (Milk Of Magnesia Liq) 30 ml Q12H PRN PO 11/09/17 18:30 (Senokot) 17.2 mg Q12H PRN PO 11/09/17 18:30 (Dulcolax Supp) 10 mg DAILY PRN RECTAL 11/09/17 18:30 (Lactulose Liq) 30 ml DAILY PRN PO 11/09/17 18:30 (Paxil) 40 mg DAILY PO 11/10/17 09:00 11/10/17 10:15 (Miralax) 17 gm DAILY PO 11/10/17 09:00 11/10/17 10:11 A/P Problem List: (1) GI bleed ICD Code: K92.2 - Gastrointestinal hemorrhage, unspecified (2) Symptomatic anemia ICD Code: D64.9 - Anemia, unspecified Status: Acute (3) Renal insufficiency ICD Code: N28.9 - Disorder of kidney and ureter, unspecified (4) Weakness ICD Code: R53.1 - Weakness Assessment and Plan GI bleed/ Anemia Hemoccult + on exam. Hgb 10.1 on admission. GI consult appreciated. - started on Protonix PO bid. - EGD per GI on Sunday. - follow CBC and transfuse as needed. Weakness Likely secondary to above. - consulted PT for eval/tx. - IVF for hydration. KITTY Creatinine 1.40 on admission. Improved with IVFs. - IVFs. - avoid nephrotoxins. Leukopenia Mild. - follow CBC. DVT Prophylaxis: SCD/Teds Osman Hill DO Nov 10, 2017 13:49
[2017-11-10] MEDS: POLYETHYLENE GLYCOL 17 GM PKG PO SCH (14:00)
--- NOTE | 2017-11-10 14:22 | PD.CONS ---
HPI History of Present Illness This is a 87 year old male was admitted to the hospital on 11/09/2017 with symptoms of generalized weakness and fatigue. Patient also notes some mild dizziness and headaches over the past few weeks. Patient denies any acute abdominal pain but states that he has had a significant history of constipation over the past 6 months. The constipation has worsened over the past 3 months. Patient denies any obvious bleeding but was checked in the emergency room setting and had a positive Hemoccult. Patient does have some mild pleasant confusion with repeating what he says at times but was able to answer simple questions with yes or no .patient denies any vomiting but does have occasional nausea and notes heartburn especially when eating spicy foods or drinking tomato juice. After speaking with patient, he calls me back into the room to say that he is also having problems swallowing his pills. He does not know if there is any problems with food or not, but does note some dysphasia which has continued to worsen over the past few months. Patient does have positive history of colon cancer with his sister. No EGD or colonoscopy in 30 years. Current hemoglobin 9.6, bilirubin 0.6, LFTs AST 40, ALT 41. Patient is sitting on the side of the bed but does require assistance to get up to the bathroom or bedside commode. Gastroenterology was consulted for symptomatic anemia and possible GI bleed. PFSH Past Medical History PMH: HTN, Hyperlipidemia, Macular Degeneration, Anxiety and Depression Past Surgical History PAST SURGICAL HISTORY: Bilateral Hernia Replacements, Appendectomy, Lens Implant Coded Allergies: No Known Allergies (Unverified Allergy, Unknown, 11/09/17) Medications Administered Medications Medications (Trade) Dose Ordered Sig/Gerber Route PRN Reason Start Time Stop Time Status Last Admin Dose Admin Sodium Chloride 1,000 ml @ 100 mls/hr Q10H IV 11/09/17 18:16 11/10/17 06:13 Pantoprazole Sodium (Protonix) 40 mg BID PO 11/09/17 21:00 11/10/17 10:11 Senna/Docusate Sodium (Josey-Colace) 1 tab BID PO 11/09/17 21:00 11/10/17 10:11 Paroxetine HCl (Paxil) 40 mg DAILY PO 11/10/17 09:00 11/10/17 10:15 Family History PAST FAMILY HISTORY: Reviewed. No h/o DM or CAD] \Sister positive for colon cancer Social History PAST SOCIAL HISTORY: Negative for alcohol, tobacco or drugs Review of Systems Constitutional: COMPLAINS OF: Fatigue, Dizziness Gastrointestinal: COMPLAINS OF: Constipation GI Exam Vitals I&O Vital Signs Date Time Temp Pulse Resp B/P (MAP) Pulse Ox O2 Delivery O2 Flow Rate FiO2 11/10/17 12:09 97.6 79 18 133/62 (85) 98 11/10/17 08:15 97.4 60 18 123/60 (81) 98 11/10/17 06:13 98 11/10/17 04:33 97.9 91 18 125/65 (85) 97 11/10/17 02:11 60 11/09/17 23:38 97.9 59 18 128/71 (90) 98 11/09/17 19:59 97.9 68 16 140/67 (91) 98 11/09/17 18:40 66 18 134/65 (88) 99 Room Air 11/09/17 17:26 85 119/61 (80) 11/09/17 17:24 73 130/75 (93) 11/09/17 17:23 71 141/69 (93) I/O 11/09/17 11/09/17 11/09/17 11/10/17 11/10/17 11/10/17 07:00 15:00 23:00 07:00 15:00 23:00 Intake Total 500 ml Balance 500 ml Intake IV Total 500 ml Imaging Last Impressions Chest X-Ray 11/09/17 1424 Signed Impressions: Service Date/Time: Thursday, November 09, 2017 15:02 - CONCLUSION: Normal examination. Juan Verdugo MD Head CT 11/09/17 0000 Signed Impressions: Service Date/Time: Thursday, November 09, 2017 14:50 - CONCLUSION: Normal examination except for mild atrophy. The left maxillary sinus is nearly completely opacified. Extensive fluid in the left frontal sinus. Juan Verdugo MD Laboratory Test 11/09/17 14:45 11/09/17 15:39 11/10/17 05:45 11/10/17 07:55 White Blood Count 4.7 TH/MM3 3.3 TH/MM3 Red Blood Count 4.24 MIL/MM3 4.11 MIL/MM3 Hemoglobin 10.1 GM/DL 9.6 GM/DL Hematocrit 30.7 % 30.3 % Mean Corpuscular Volume 72.4 FL 73.7 FL Mean Corpuscular Hemoglobin 23.7 PG 23.5 PG Mean Corpuscular Hemoglobin Concent 32.7 % 31.8 % Red Cell Distribution Width 18.6 % 18.4 % Platelet Count 315 TH/MM3 264 TH/MM3 Mean Platelet Volume 7.1 FL 7.0 FL Neutrophils (%) (Auto) 60.2 % 53.0 % Lymphocytes (%) (Auto) 23.6 % 25.6 % Monocytes (%) (Auto) 11.0 % 13.4 % Eosinophils (%) (Auto) 4.1 % 6.3 % Basophils (%) (Auto) 1.1 % 1.7 % Neutrophils # (Auto) 2.8 TH/MM3 1.7 TH/MM3 Lymphocytes # (Auto) 1.1 TH/MM3 0.8 TH/MM3 Monocytes # (Auto) 0.5 TH/MM3 0.4 TH/MM3 Eosinophils # (Auto) 0.2 TH/MM3 0.2 TH/MM3 Basophils # (Auto) 0.1 TH/MM3 0.1 TH/MM3 CBC Comment DIFF FINAL DIFF FINAL Differential Comment Prothrombin Time 9.9 SEC 10.0 SEC Prothromb Time International Ratio 1.0 RATIO 1.0 RATIO Activated Partial Thromboplast Time 25.9 SEC Blood Urea Nitrogen 28 MG/DL 22 MG/DL Creatinine 1.40 MG/DL 1.18 MG/DL Random Glucose 96 MG/DL 79 MG/DL Total Protein 6.9 GM/DL 6.2 GM/DL Albumin 3.3 GM/DL 2.9 GM/DL Calcium Level 8.7 MG/DL 8.1 MG/DL Magnesium Level 2.3 MG/DL 2.2 MG/DL Alkaline Phosphatase 76 U/L 65 U/L Aspartate Amino Transf (AST/SGOT) 42 U/L 40 U/L Alanine Aminotransferase (ALT/SGPT) 49 U/L 41 U/L Total Bilirubin 0.3 MG/DL 0.6 MG/DL Sodium Level 137 MEQ/L 136 MEQ/L Potassium Level 3.8 MEQ/L 4.2 MEQ/L Chloride Level 102 MEQ/L 106 MEQ/L Carbon Dioxide Level 24.2 MEQ/L 22.2 MEQ/L Anion Gap 11 MEQ/L 8 MEQ/L Estimat Glomerular Filtration Rate 48 ML/MIN 59 ML/MIN Urine Color LIGHT-YELLOW Urine Turbidity CLEAR Urine pH 5.5 Urine Specific [place] 1.016 Urine Protein NEG mg/dL Urine Glucose (UA) NEG mg/dL Urine Ketones NEG mg/dL Urine Occult Blood NEG Urine Nitrite NEG Urine Bilirubin NEG Urine Urobilinogen LESS THAN 2.0 MG/DL Urine Leukocyte Esterase NEG Urine WBC LESS THAN 1 /hpf Urine Hyaline Casts 7 /lpf Urine Mucus FEW /lpf Microscopic Urinalysis Comment CULT NOT INDICATED Phosphorus Level 2.1 MG/DL Hemoglobin A1c 5.7 % Iron Level 29 MCG/DL Total Iron Binding Capacity 367 MCG/DL Percent Iron Saturation 7.9 % Ferritin 19 NG/ML Vitamin B12 Level 267 PG/ML Folate GREATER THAN 20.0 NG/ML Free Thyroxine 1.05 NG/DL Thyroid Stimulating Hormone 3rd Gen 2.810 uIU/ML Physical Examination HEENT: normocephalic; atraumatic; no jaundice. NECK: Neck is supple, CHEST: No shortness of breath, no rhonchi, mild diminished breath sounds in bases CARDIAC: S1-S2 ABDOMEN: Soft, nondistended, nontender; bowel sounds are present in all four quadrants. EXTREMITIES: No clubbing, cyanosis, or edema. SKIN: Normal; no rash; no jaundice. [employer]: Pleasant confusion at times and repeats himself, answer simple questions appropriately Assessment and Plan Assessment: (1) Heme positive stool ICD Codes: R19.5 - Other fecal abnormalities Status: Acute (2) Symptomatic anemia ICD Codes: D64.9 - Anemia, unspecified Status: Acute (3) GI bleed ICD Codes: K92.2 - Gastrointestinal hemorrhage, unspecified (4) Weakness ICD Codes: R53.1 - Weakness Plan 87-year-old male came into the hospital on 11/09/2017 with symptoms of weakness fatigue, dizziness. Hemoccult done in the ER showed positive results. Patient notes constipation for the past 6 months worsening for the past 3 months with bowel movement at least every 2 days if not more. Patient had been taking MiraLAX at home every 2 or 3 days but states constipation symptoms persist. Patient denies any abdominal pain but is positive for heartburn with aggregating factors tomato juice and spicy foods. This is usually on a weekly basis. No colonoscopy in 30 years or EGD.. Positive family history of colon cancer with his sister. No symptoms of vomiting, but at the end of our conversation patient states he is having some problems swallowing. He states pills seem to get stuck but unknown if there is any foods that bother him. Plan Consent for EGD with dilation and colonoscopy planned for Sunday a.m. Clear liquids for now MiraLAX daily CT of the abdomen/pelvis/constipation initiated 6 months ago worsening over the past 3 months, rule out any abnormal masses/abnormal findings Monitor labs with special attention to hemoglobin Safety measures when patient is getting up Further recommendations will be based on symptoms and findings Patient was seen per myself and , note was written on his behalf Deana Phan Nov 10, 2017 14:22
[2017-11-10] MEDS ORDERED: DIATRIZOATE MEGLUM/DIATRIZOATE SOD 9 ML CUP PO ONE (16:00)
[2017-11-10] MEDS ORDERED: IOHEXOL 350 MG/ML 10 ML VIAL (for RAD DIAG) IVCONTRAST ONE (19:41)
[2017-11-10] MEDS ORDERED: PEG (High)/E-LYTE SOLN 4000 ML BTL PO ONE (19:45)
--- NOTE | 2017-11-10 19:53 | RADRPT ---
EXAM DATE/TIME: 11/10/2017 19:39 [facility] COMPARISON: No previous studies available for comparison. INDICATIONS : Abdominal pain and constipation. IV CONTRAST: 75 cc Omnipaque 350 (iohexol) IV ORAL CONTRAST: Prescribed oral contrast ingested. RADIATION DOSE: 12.84 CTDIvol (mGy) MEDICAL HISTORY : Hypertension. Carcinoma, prostate. SURGICAL HISTORY : Appendectomy. Hernia repair ENCOUNTER: Initial ACUITY: 3 days PAIN SCALE: 6/10 LOCATION: abdomen TECHNIQUE: Volumetric scanning of the abdomen and pelvis was performed. Using automated exposure control and ad justment of the mA and/or kV according to patient size, radiation dose was kept as low as reasonably achievable to obtain optimal diagnostic quality images. DICOM format image data is available electro nically for review and comparison. FINDINGS: LOWER LUNGS: The visualized lower lungs are clear. LIVER: Decreased attenuation without lesion. There is no dilation of the biliary tree. No calcified gallst ones. SPLEEN: Normal size without lesion. PANCREAS: Within normal limits. KIDNEYS: Normal in size and shape. There is no mass, stone or hydronephrosis. Right renal low density. ADRENAL GLANDS: Within normal limits. VASCULAR: There is no aortic aneurysm. BOWEL/MESENTERY: Moderate size hiatal hernia. There is no free intraperitoneal air or fluid. ABDOMINAL WALL: Within normal limits. RETROPERITONEUM: There is no lymphadenopathy. BLADDER: No wall thickening or mass. REPRODUCTIVE: Prosthetics seeds. INGUINAL: There is no lymphadenopathy or hernia. MUSCULOSKELETAL: Within normal limits for patient age. CONCLUSION: 1. Mild hepatic steatosis. 2. Right renal cyst. 3. Moderate hiatal hernia. Raúl Mcghee MD on November 10, 2017 at 19:47 Board Certified Radiologist. This report was verified electronically.
[2017-11-11] VITALS (9 sets, daily range): BP systolic 105–154; BP diastolic 58–74; PULSE 65–89; RESP 16–18; TEMP 97.7–98.2; O2SAT 97–99
[2017-11-11] MEDS: SODIUM CHLOR 0.9% 1000 ML INJ 1,000 ML IV SCH ×3 (00:30→20:16)
[2017-11-11] MEDS ORDERED: LACTATED RINGER'S 1000 ML IV PRN (02:00)
[2017-11-11] MEDS ORDERED: POVIDONE IODINE 5% (ANTISEPSIS KIT) 4 APPLICATIONS EACH NARE PRN (02:00)
[2017-11-11] MEDS ORDERED: SODIUM CHLORID 0.9% 500 ML IV PRN (02:00)
[2017-11-11] MEDS ORDERED: CHLORHEXIDINE GLUCONATE 2 % 1 PACK (2 CLOTHS) TOPICAL PRN (02:00)
[2017-11-11] MEDS ORDERED: METOPROLOL TARTRATE 25 MG TAB PO PRN (02:00)
[2017-11-11] MEDS ORDERED: INSULIN HUMAN REGULAR 1,000 UNITS/10 ML VIAL SQ PRN (02:00)
[2017-11-11] MEDS: SODIUM CHLORIDE 0.9% FLUSH 10 ML FLUSH IV FLUSH SCH ×2 (08:12→20:00)
[2017-11-11] MEDS: POLYETHYLENE GLYCOL 17 GM PKG PO SCH (08:15)
[2017-11-11] MEDS: PANTOPRAZOLE SOD 40 MG DELAYED RELEASE TAB PO SCH ×2 (08:16→20:00)
[2017-11-11] MEDS: PARoxetine HCL 20 MG TAB PO SCH (08:16)
[2017-11-11] MEDS: DOCUSATE SODIUM 50 MG/SENNA 8.6 MG TAB PO SCH ×2 (08:16→20:01)
[2017-11-11] MEDS ORDERED: PROPOFOL 200 MG/20 ML AMP IV ONE (12:00)
[2017-11-11] MEDS ORDERED: ePHEDrine/NS 25 MG/5 ML SYRINGE IV ONE (12:00)
[2017-11-11] MEDS ORDERED: LIDOCAINE HCL 1% PF 5 ML SYRINGE OTHER ONE (12:00)
[2017-11-11] MEDS ORDERED: DO NOT ADM ANY ANTICOAGULANT DRUGS PRN (12:32)
[2017-11-11] MEDS ORDERED: PEG (High)/E-LYTE SOLN 4000 ML BTL PO ONE (14:00)
[2017-11-11] MEDS ORDERED: CYANOCOBALAMIN 1000 MCG/ML VIAL IM ONE (15:00)
--- NOTE | 2017-11-11 15:10 | HHI.PR ---
Subjective Remarks Follow-up on patient with GI bleed. Patient status post EGD/colonoscopy. Patient complains of some mild right lower quadrant discomfort. Denies any nausea or vomiting. Denies any fever or chills. Denies any chest pain or shortness of breath. States he has an appetite and would like to eat. Objective Vitals Vital Signs Date Time Temp Pulse Resp B/P (MAP) Pulse Ox O2 Delivery O2 Flow Rate FiO2 11/11/17 13:11 98.0 65 18 150/71 (97) 97 11/11/17 12:45 98.7 62 14 143/74 (97) 99 Room Air 11/11/17 12:30 68 14 120/60 (80) 97 Room Air 11/11/17 12:29 98.7 69 14 120/62 (81) 97 Room Air 11/11/17 08:15 98.0 68 18 147/67 (93) 98 11/11/17 07:45 69 11/11/17 04:00 98.0 77 16 105/60 (75) 98 11/11/17 00:22 98.2 76 134/59 (84) 99 11/10/17 23:00 80 11/10/17 21:41 97 11/10/17 20:40 98.2 73 17 123/64 (83) 94 11/10/17 17:20 76 11/10/17 16:00 98.2 68 18 109/55 (73) 97 I/O 11/10/17 11/10/17 11/10/17 11/11/17 11/11/17 11/11/17 07:00 15:00 23:00 07:00 15:00 23:00 Intake Total 1500 ml Balance 1500 ml Intake IV Total 1000 ml Other 500 ml # Bowel Movements 5 Result Diagram: 11/10/17 0755 11/10/17 0545 Imaging Last Impressions Abdomen/Pelvis CT 11/10/17 0000 Signed Impressions: Service Date/Time: Friday, November 10, 2017 19:39 - CONCLUSION: 1. Mild hepatic steatosis. 2. Right renal cyst. 3. Moderate hiatal hernia. Raúl Mcghee MD Chest X-Ray 11/09/17 1424 Signed Impressions: Service Date/Time: Thursday, November 09, 2017 15:02 - CONCLUSION: Normal examination. Juan Verdugo MD Head CT 11/09/17 0000 Signed Impressions: Service Date/Time: Thursday, November 09, 2017 14:50 - CONCLUSION: Normal examination except for mild atrophy. The left maxillary sinus is nearly completely opacified. Extensive fluid in the left frontal sinus. Juan Verdugo MD Objective Remarks GENERAL: WDWN elderly male patient, in no acute distress. Awake and alert. Resting comfortably. is at the bedside. HEENT: NC/AT. PERRLA, EOMI. No scleral icterus or conjunctival pallor. No lid lag or facial droop. Nose without any purulence of drainage. MMM. CARDIOVASCULAR: Regular rate and rhythm. Grade 2 systolic murmur appreciated. RESPIRATORY: Nonlabored. No obvious rhonchi or wheezing. Clear to auscultation. Breath sounds equal bilaterally. GASTROINTESTINAL: Abdomen soft, non-tender, nondistended. BS normal. MUSCULOSKELETAL: Extremities without clubbing, cyanosis, or edema. No obvious deformities. NEUROLOGICAL: Awake, alert and oriented x4. No focal neurologic deficits. Moving both upper and lower extremities spontaneously. PSYCH: Mood and affect appropriate. Normal judgment and insight. Medications and IVs Current Medications Medications (Trade) Dose Ordered Sig/Gerber Route Start Time Stop Time Status Last Admin Sodium Chloride 1,000 ml @ 100 mls/hr Q10H IV 11/09/17 18:16 11/11/17 10:45 (Protonix) 40 mg BID PO 11/09/17 21:00 11/11/17 08:16 (NS Flush) 2 ml UNSCH PRN IV FLUSH 11/09/17 18:30 (NS Flush) 2 ml BID IV FLUSH 11/09/17 21:00 (Zofran Inj) 4 mg Q6H PRN IVP 11/09/17 18:30 11/10/17 19:27 (Reglan Inj) 5 mg Q6H PRN IV PUSH 11/09/17 18:30 11/11/17 00:30 (Tylenol) 650 mg Q6H PRN PO 11/09/17 18:30 (Percocet 5-325 Mg) 1 tab Q6H PRN PO 11/09/17 18:30 (Percocet 10-325 Mg) 1 tab Q6H PRN PO 11/09/17 18:30 (Morphine Inj) 2 mg Q3H PRN IV PUSH 11/09/17 18:30 (Morphine Inj) 4 mg Q3H PRN IV PUSH 11/09/17 18:30 (Morphine Inj) 4 mg Q3H PRN IV PUSH 11/09/17 18:30 (Narcan Inj) 0.4 mg UNSCH PRN IV PUSH 11/09/17 18:30 (Josey-Colace) 1 tab BID PO 11/09/17 21:00 11/11/17 08:16 (Milk Of Magnesia Liq) 30 ml Q12H PRN PO 11/09/17 18:30 (Senokot) 17.2 mg Q12H PRN PO 11/09/17 18:30 (Dulcolax Supp) 10 mg DAILY PRN RECTAL 11/09/17 18:30 (Lactulose Liq) 30 ml DAILY PRN PO 11/09/17 18:30 (Paxil) 40 mg DAILY PO 11/10/17 09:00 11/11/17 08:16 (Miralax) 17 gm DAILY PO 11/10/17 14:00 11/11/17 08:15 Lactated Ringer's 1,000 ml @ 30 mls/hr Q24H PRN IV 11/11/17 02:00 11/14/17 01:59 11/11/17 11:11 Sodium Chloride 500 ml @ 30 mls/hr [id number] PRN IV 11/11/17 02:00 11/14/17 01:59 (Lopressor) 25 mg PRIVATE DUTY AIDE PRN PO 11/11/17 02:00 11/14/17 01:59 (Betadine 5% Antisepsis Kit) 1 applic PRIVATE DUTY AIDE PRN EACH NARE 11/11/17 02:00 11/14/17 01:59 (Chlorhexidine 2% Cloth) 3 pack PRIVATE DUTY AIDE PRN TOPICAL 11/11/17 02:00 11/14/17 01:59 (NovoLIN R INJ) See Protocol Table ... PRIVATE DUTY AIDE PRN SQ 11/11/17 02:00 11/14/17 01:59 ([facility] Nursing Information) ALL NURSING DEPARTME... UNSCH PRN .XX 11/11/17 12:32 11/12/17 12:31 A/P Problem List: (1) GI bleed ICD Code: K92.2 - Gastrointestinal hemorrhage, unspecified (2) Symptomatic anemia ICD Code: D64.9 - Anemia, unspecified Status: Acute (3) Renal insufficiency ICD Code: N28.9 - Disorder of kidney and ureter, unspecified (4) Weakness ICD Code: R53.1 - Weakness Assessment and Plan GI bleed/ Anemia Hemoccult + on exam. Hgb 10.1 on admission. GI consult appreciated. s/p panendoscopy revealing esophageal nodule, status post biopsy and polypectomy - Clear liquid diet, advance as tolerated - follow CBC and transfuse as needed. Repeat CBC in a.m. - continue Protonix 40mg BID GERARDO Low normal vitamin B12 - start on po ferrous sulfate iron repletion - B12 1000mcg IM now Weakness Likely secondary to above. - consulted PT for eval/tx. - IVF for hydration. KITTY, improving Creatinine 1.40 on admission. Improved with IVFs. - IVFs. - avoid nephrotoxins. Hypophosphatemia - po repletion ordered Leukopenia Mild. - follow CBC. DVT Prophylaxis: SCD/Teds Discharge Planning Not ready for discharge. Discharge pending clinical improvement, stable H/H, able to tolerate diet and GI clearance Comfort Dave Nov 11, 2017 15:09
[2017-11-11] MEDS ORDERED: MORPHINE SULFATE 4 MG/ML INJ IV PUSH PRN ×2 (15:15)
[2017-11-11] MEDS: POTASSIUM PHOSPHATE/SODIUM PHOSPHATE 250 MG TAB PO SCH ×2 (15:40→21:23)
[2017-11-11] MEDS: FERROUS SULFATE 325 MG (65 MG ELEMENTAL IRON) TAB PO SCH (20:01)
[2017-11-11 20:33] LABS: AUTOMATED NEUTROPHIL # 3.8 TH/MM3 (1.8-7.7); BASOPHIL % 0.6 % (0.0-2.0); EOSINOPHIL # 0.1 TH/MM3 (0-0.4); EOSINOPHIL % 1.7 % (0.0-4.0); HEMOGLOBIN 9.5 GM/DL (13.0-17.0); LYMPH % 17.8 % (9.0-44.0); LYMPHOCYTE # 0.9 TH/MM3 (1.0-4.8); MEAN CELL VOLUME 72.7 FL (80.0-100.0); MEAN CORPUSCULAR HEMOGLOBIN 23.8 PG (27.0-34.0); MEAN CORPUSCULAR HGB CONC 32.7 % (32.0-36.0); MONO % 7.5 % (0.0-8.0); MONOCYTE # 0.4 TH/MM3 (0-0.9); NEUT % 72.4 % (16.0-70.0); PLATELET COUNT 265 TH/MM3 (150-450); RED BLOOD COUNT 3.99 MIL/MM3 (4.50-5.90); RED CELL DISTRIBUTION WIDTH 18.2 % (11.6-17.2); WHITE BLOOD COUNT 5.2 TH/MM3 (4.0-11.0)
[2017-11-12] VITALS (8 sets, daily range): BP systolic 101–137; BP diastolic 55–64; PULSE 63–95; RESP 16; TEMP 97.5–98.1; O2SAT 94–100
[2017-11-12 04:19] LABS: HEMATOCRIT 25.9 % (39.0-51.0); HEMOGLOBIN 8.3 GM/DL (13.0-17.0); MEAN CELL VOLUME 73.6 FL (80.0-100.0); MEAN CORPUSCULAR HEMOGLOBIN 23.6 PG (27.0-34.0); MEAN CORPUSCULAR HGB CONC 32.1 % (32.0-36.0); MEAN PLATELET VOLUME 6.9 FL (7.0-11.0); PLATELET COUNT 241 TH/MM3 (150-450); RED BLOOD COUNT 3.52 MIL/MM3 (4.50-5.90); RED CELL DISTRIBUTION WIDTH 18.1 % (11.6-17.2); WHITE BLOOD COUNT 3.8 TH/MM3 (4.0-11.0)
[2017-11-12 04:43] LABS: BICARBONATE 23.6 MEQ/L (21.0-32.0); CREATININE 1.07 MG/DL (0.60-1.30); MAGNESIUM 2.1 MG/DL (1.5-2.5)
[2017-11-12] MEDS: POTASSIUM PHOSPHATE/SODIUM PHOSPHATE 250 MG TAB PO SCH ×2 (05:21→14:00)
[2017-11-12] MEDS: SODIUM CHLOR 0.9% 1000 ML INJ 1,000 ML IV SCH ×2 (05:23→16:16)
[2017-11-12] MEDS ORDERED: POTASSIUM CHLORIDE 10 MEQ CONTROLLED RELEASE TAB PO ONE (08:00)
[2017-11-12] MEDS: SODIUM CHLORIDE 0.9% FLUSH 10 ML FLUSH IV FLUSH SCH (09:00)
[2017-11-12] MEDS: PANTOPRAZOLE SOD 40 MG DELAYED RELEASE TAB PO SCH (09:20)
[2017-11-12] MEDS: FERROUS SULFATE 325 MG (65 MG ELEMENTAL IRON) TAB PO SCH (09:20)
[2017-11-12] MEDS: PARoxetine HCL 20 MG TAB PO SCH (09:20)
[2017-11-12] MEDS: DOCUSATE SODIUM 50 MG/SENNA 8.6 MG TAB PO SCH (09:20)
[2017-11-12] MEDS: POLYETHYLENE GLYCOL 17 GM PKG PO SCH (09:21)
--- NOTE | 2017-11-12 09:36 | HHI.GIFU ---
Subjective Remarks Pt resting in bed. Cannot say if he is having blood in his stool b/c he say no one has emptied h is commode in 3 days and its all mixed up. (Nasreen Richter) Objective Vitals I&O Vital Signs Date Time Temp Pulse Resp B/P (MAP) Pulse Ox O2 Delivery O2 Flow Rate FiO2 11/12/17 09:21 97.9 67 16 125/64 (84) 97 11/12/17 03:58 63 11/12/17 00:34 98.1 70 16 101/55 (70) 94 11/12/17 00:00 91 11/11/17 20:00 88 11/11/17 19:56 98.2 89 16 122/58 (79) 97 11/11/17 15:31 97.7 72 18 154/74 (100) 97 11/11/17 15:24 85 11/11/17 13:11 98.0 65 18 150/71 (97) 97 11/11/17 12:45 98.7 62 14 143/74 (97) 99 Room Air 11/11/17 12:30 68 14 120/60 (80) 97 Room Air 11/11/17 12:29 98.7 69 14 120/62 (81) 97 Room Air I/O 11/11/17 11/11/17 11/11/17 11/12/17 11/12/17 11/12/17 07:00 15:00 23:00 07:00 15:00 23:00 Intake Total 1500 ml Output Total 1 ml Balance 1500 ml -1 ml Intake IV Total 1000 ml Other 500 ml Output Stool Total 1 ml # Voids 2 # Bowel Movements 5 Laboratory Laboratory Tests Test 11/11/17 19:42 11/12/17 03:45 White Blood Count 5.2 3.8 Red Blood Count 3.99 3.52 Hemoglobin 9.5 8.3 Hematocrit 29.0 25.9 Mean Corpuscular Volume 72.7 73.6 Mean Corpuscular Hemoglobin 23.8 23.6 Mean Corpuscular Hemoglobin Concent 32.7 32.1 Red Cell Distribution Width 18.2 18.1 Platelet Count 265 241 Mean Platelet Volume 7.0 6.9 Neutrophils (%) (Auto) 72.4 Lymphocytes (%) (Auto) 17.8 Monocytes (%) (Auto) 7.5 Eosinophils (%) (Auto) 1.7 Basophils (%) (Auto) 0.6 Neutrophils # (Auto) 3.8 Lymphocytes # (Auto) 0.9 Monocytes # (Auto) 0.4 Eosinophils # (Auto) 0.1 Basophils # (Auto) 0.0 CBC Comment DIFF FINAL Differential Comment Blood Urea Nitrogen 10 Creatinine 1.07 Random Glucose 93 Calcium Level 8.0 Magnesium Level 2.1 Sodium Level 141 Potassium Level 3.4 Chloride Level 108 Carbon Dioxide Level 23.6 Anion Gap 9 Estimat Glomerular Filtration Rate 66 Imaging Last Impressions Abdomen/Pelvis CT 11/10/17 0000 Signed Impressions: Service Date/Time: Friday, November 10, 2017 19:39 - CONCLUSION: 1. Mild hepatic steatosis. 2. Right renal cyst. 3. Moderate hiatal hernia. Raúl Mcghee MD Chest X-Ray 11/09/17 1424 Signed Impressions: Service Date/Time: Thursday, November 09, 2017 15:02 - CONCLUSION: Normal examination. Juan Verdugo MD Head CT 11/09/17 0000 Signed Impressions: Service Date/Time: Thursday, November 09, 2017 14:50 - CONCLUSION: Normal examination except for mild atrophy. The left maxillary sinus is nearly completely opacified. Extensive fluid in the left frontal sinus. Juan Verdugo MD Physical Exam HEENT: PERRL; normocephalic; atraumatic; no jaundice. CHEST: CTA CARDIAC: RRR ABDOMEN: Soft, nondistended, nontender; no hepatosplenomegaly; bowel sounds are present in all four quadrants. EXTREMITIES: No clubbing, cyanosis, or edema. SKIN: pale; no rash; no jaundice. DELIVERY ARCHITECT: No focal deficits; alert and oriented times three. (Nasreen RihcterP) Assessment and Plan Assessment: (1) Heme positive stool ICD Codes: R19.5 - Other fecal abnormalities Status: Acute (2) Symptomatic anemia ICD Codes: D64.9 - Anemia, unspecified Status: Acute (3) GI bleed ICD Codes: K92.2 - Gastrointestinal hemorrhage, unspecified (4) Weakness ICD Codes: R53.1 - Weakness Plan 87-year-old male came into the hospital on 11/09/2017 with symptoms of weakness fatigue, dizziness. Hemoccult done in the ER showed positive results. Patient notes constipation for the past 6 months worsening for the past 3 months with bowel movement at least every 2 days if not more. Patient had been taking MiraLAX at home every 2 or 3 days but states constipation symptoms persist. Patient denies any abdominal pain but is positive for heartburn with aggregating factors tomato juice and spicy foods. This is usually on a weekly basis. No colonoscopy in 30 years or EGD.. Positive family history of colon cancer with his sister. No symptoms of vomiting, but at the end of our conversation patient states he is having some problems swallowing. He states pills seem to get stuck but unknown if there is any foods that bother him. 11/12/17 s/p EGD with dilatation, colonoscopy revealing esophageal nodule, diverticulosis, polyp colon, hemorrhoids. Bx pending hgb dropped some today. no obvious bleeding. CT showed hiatal hernia, fatty liver Plan - mediterranean diet - monitor labs - transfuse if needed - notify GI of active bleeding - await bx - supportive care pt seen by myself and Dr Cohen and this note is on his behalf (Nasreen Richter) Plan Patient was seen and examined, agree with above note, no sign of bleeding, patient is being discharged today, he can follow with GI as an outpatient in 1- 2 weeks, need to come back if he started having any sign of active bleeding (Seven Cohen MD) Nasreen Richter Nov 12, 2017 09:36 Seven Cohen MD Nov 12, 2017 17:39
[2017-11-12 10:24] LABS: CALCIUM 7.8 MG/DL (8.5-10.1)
--- NOTE | 2017-11-12 10:25 | HHI.PR ---
Subjective Remarks Follow-up on patient with GI bleed. Patient status post EGD/colonoscopy. Patient is able to tolerate clear liquid diet without any difficulties. He denies any nausea vomiting abdominal pain. States he has had a bowel movement this morning but he does not know if he had any blood in it. He denies any chest pain or shortness of breath. He is hoping to be discharged today if possible. Objective Vitals Vital Signs Date Time Temp Pulse Resp B/P (MAP) Pulse Ox O2 Delivery O2 Flow Rate FiO2 11/12/17 09:21 97.9 67 16 125/64 (84) 97 11/12/17 03:58 63 11/12/17 00:34 98.1 70 16 101/55 (70) 94 11/12/17 00:00 91 11/11/17 20:00 88 11/11/17 19:56 98.2 89 16 122/58 (79) 97 11/11/17 15:31 97.7 72 18 154/74 (100) 97 11/11/17 15:24 85 11/11/17 13:11 98.0 65 18 150/71 (97) 97 11/11/17 12:45 98.7 62 14 143/74 (97) 99 Room Air 11/11/17 12:30 68 14 120/60 (80) 97 Room Air 11/11/17 12:29 98.7 69 14 120/62 (81) 97 Room Air I/O 11/11/17 11/11/17 11/11/17 11/12/17 11/12/17 11/12/17 07:00 15:00 23:00 07:00 15:00 23:00 Intake Total 1500 ml Output Total 1 ml Balance 1500 ml -1 ml Intake IV Total 1000 ml Other 500 ml Output Stool Total 1 ml # Voids 2 # Bowel Movements 5 Result Diagram: 11/12/17 0345 11/12/17 0345 Imaging Last Impressions Abdomen/Pelvis CT 11/10/17 0000 Signed Impressions: Service Date/Time: Friday, November 10, 2017 19:39 - CONCLUSION: 1. Mild hepatic steatosis. 2. Right renal cyst. 3. Moderate hiatal hernia. Raúl Mcghee MD Chest X-Ray 11/09/17 1424 Signed Impressions: Service Date/Time: Thursday, November 09, 2017 15:02 - CONCLUSION: Normal examination. Juan Verdugo MD Head CT 11/09/17 0000 Signed Impressions: Service Date/Time: Thursday, November 09, 2017 14:50 - CONCLUSION: Normal examination except for mild atrophy. The left maxillary sinus is nearly completely opacified. Extensive fluid in the left frontal sinus. Juan Verdugo MD Objective Remarks GENERAL: WDWN elderly male patient, in no acute distress. Awake and alert. Standing up at the bedside. Appears steady on his feet. HEENT: NC/AT. PERRLA, EOMI. No scleral icterus or conjunctival pallor. No lid lag or facial droop. Nose without any purulence of drainage. MMM. CARDIOVASCULAR: Regular rate and rhythm. Grade 2 systolic murmur appreciated. RESPIRATORY: Nonlabored. No obvious rhonchi or wheezing. Clear to auscultation. Breath sounds equal bilaterally. GASTROINTESTINAL: Abdomen soft, non-tender, nondistended. BS normal. MUSCULOSKELETAL: Extremities without clubbing, cyanosis, or edema. No obvious deformities. NEUROLOGICAL: Awake, alert and oriented x4. No focal neurologic deficits. Moving both upper and lower extremities spontaneously. Normal speech. PSYCH: Mood and affect appropriate. Normal judgment and insight. Medications and IVs Current Medications Medications (Trade) Dose Ordered Sig/Gerber Route Start Time Stop Time Status Last Admin Sodium Chloride 1,000 ml @ 100 mls/hr Q10H IV 11/09/17 18:16 11/12/17 05:23 (Protonix) 40 mg BID PO 11/09/17 21:00 11/12/17 09:20 (NS Flush) 2 ml UNSCH PRN IV FLUSH 11/09/17 18:30 (NS Flush) 2 ml BID IV FLUSH 11/09/17 21:00 11/11/17 20:00 (Zofran Inj) 4 mg Q6H PRN IVP 11/09/17 18:30 11/10/17 19:27 (Reglan Inj) 5 mg Q6H PRN IV PUSH 11/09/17 18:30 11/11/17 00:30 (Tylenol) 650 mg Q6H PRN PO 11/09/17 18:30 (Percocet 5-325 Mg) 1 tab Q6H PRN PO 11/09/17 18:30 (Percocet 10-325 Mg) 1 tab Q6H PRN PO 11/09/17 18:30 (Morphine Inj) 2 mg Q3H PRN IV PUSH 11/09/17 18:30 (Narcan Inj) 0.4 mg UNSCH PRN IV PUSH 11/09/17 18:30 (Josey-Colace) 1 tab BID PO 11/09/17 21:00 11/12/17 09:20 (Milk Of Magnesia Liq) 30 ml Q12H PRN PO 11/09/17 18:30 (Senokot) 17.2 mg Q12H PRN PO 11/09/17 18:30 (Dulcolax Supp) 10 mg DAILY PRN RECTAL 11/09/17 18:30 (Lactulose Liq) 30 ml DAILY PRN PO 11/09/17 18:30 (Paxil) 40 mg DAILY PO 11/10/17 09:00 11/12/17 09:20 (Miralax) 17 gm DAILY PO 11/10/17 14:00 11/12/17 09:21 Lactated Ringer's 1,000 ml @ 30 mls/hr Q24H PRN IV 11/11/17 02:00 11/14/17 01:59 11/11/17 11:11 Sodium Chloride 500 ml @ 30 mls/hr [id number] PRN IV 11/11/17 02:00 11/14/17 01:59 (Lopressor) 25 mg PACKAGE CHECKER PRN PO 11/11/17 02:00 11/14/17 01:59 (Betadine 5% Antisepsis Kit) 1 applic PACKAGE CHECKER PRN EACH NARE 11/11/17 02:00 11/14/17 01:59 (Chlorhexidine 2% Cloth) 3 pack PACKAGE CHECKER PRN TOPICAL 11/11/17 02:00 11/14/17 01:59 (NovoLIN R INJ) See Protocol Table ... PACKAGE CHECKER PRN SQ 11/11/17 02:00 11/14/17 01:59 ([facility] [place] Nursing Information) ALL NURSING DEPARTME... UNSCH PRN .XX 11/11/17 12:32 11/12/17 12:31 (Ferrous Sulfate) 325 mg BID PO 11/11/17 21:00 11/12/17 09:20 (K-Phos Neutral) 250 mg Q8HR PO 11/11/17 15:00 11/12/17 05:21 (Morphine Inj) 4 mg Q3H PRN IV PUSH 11/11/17 15:15 (Morphine Inj) 4 mg Q3H PRN IV PUSH 11/11/17 15:15 A/P Problem List: (1) GI bleed ICD Code: K92.2 - Gastrointestinal hemorrhage, unspecified (2) Symptomatic anemia ICD Code: D64.9 - Anemia, unspecified Status: Acute (3) Renal insufficiency ICD Code: N28.9 - Disorder of kidney and ureter, unspecified (4) Weakness ICD Code: R53.1 - Weakness Assessment and Plan GI bleed Hemoccult + on exam. Hgb 10.1 on admission. GI following, s/p panendoscopy revealing esophageal nodule, status post biopsy and polypectomy - advance diet to soft heart healthy and monitor how patient tolerates - continue Protonix 40mg daily - Mediterranean diet per GI - Monitor for any evidence of active bleeding Anemia secondary to GIB GERARDO Low normal vitamin B12, given B12 1000mcg IM yesterday Hgb dropped to 8.3, pancytopenic - continue on po ferrous sulfate iron repletion - repeat H&H at 1000am - plan to transfuse for hemoglobin less than 7 or if hemodynamically unstable Weakness Likely secondary to above. - Evaluated by PT, no PT needs identified at discharge KITTY, improving Creatinine 1.40 on admission. Improved with IVFs. - avoid nephrotoxins. - Continue to monitor kidney function as indicated Hypophosphatemia - po repletion ordered, continue Hypokalemia K level 3.4, Mag level 2.1 - po potassium level ordered - repeat BMP in 2-3 days to monitor response DVT Prophylaxis: SCD/Teds. Avoid chemoprophylaxis secondary to GI bleed Discharge Planning Not ready for discharge. Discharge pending stable H/H, able to tolerate diet and GI clearance. Comfort Dave Nov 12, 2017 10:25
[2017-11-12 10:30] LABS: CALCIUM-PROTEIN CORRECTED 8.5 MG/DL (8.5-10.1); TOTAL PROTEIN 5.8 GM/DL (6.4-8.2)
[2017-11-12 11:15] LABS: HEMATOCRIT 28.1 % (39.0-51.0); HEMOGLOBIN 8.9 GM/DL (13.0-17.0)
[2017-11-12] MEDS ORDERED: PANT40TA3 PO (16:37)
[2017-11-12] MEDS ORDERED: KPHOS250 PO (16:37)
[2017-11-12] MEDS ORDERED: FERR325T20 PO (16:37)
[2017-11-12] MEDS ORDERED: POLY17S PO (16:39)
--- NOTE | 2017-11-12 17:07 | HHI.DS ---
Discharge Summary Admission Date Nov 09, 2017 at 18:18 Discharge Date: Nov 12, 2017 Admitting Diagnosis symptomatic anemia, GIB (1) GI bleed ICD Code: K92.2 - Gastrointestinal hemorrhage, unspecified (2) Symptomatic anemia ICD Code: D64.9 - Anemia, unspecified Status: Acute (3) Acute kidney injury ICD Code: N17.9 - Acute kidney failure, unspecified (4) Iron deficiency anemia ICD Code: D50.9 - Iron deficiency anemia, unspecified (5) Hypophosphatemia ICD Code: E83.39 - Other disorders of phosphorus metabolism (6) Hypokalemia ICD Code: E87.6 - Hypokalemia (7) Esophageal stricture ICD Code: K22.2 - Esophageal obstruction (8) Renal insufficiency ICD Code: N28.9 - Disorder of kidney and ureter, unspecified (9) Weakness ICD Code: R53.1 - Weakness Procedures s/p panendoscopy revealing esophageal nodule, status post biopsy and polypectomy 11/11/17 Brief History - From Admission This is an 87-year-old male with a PMH of HTN, Hyperlipidemia, Macular Degeneration, Anxiety and Depression who presented to the ER with complaints of generalized weakness x2 wks. Pt states he was taking out the garbage today when he felt significant weakness. Notes increasing lethargy for the last 3-4 days. Denies fever, chills, chest pain, SOB or sick contacts. On arrival, BP 129/64, HR 100, O2 sat 100% on RA, Afebrile. Hemoglobin 10.1, previously 13.7 on 08/02/2015. Creatinine 1.40, previously 1.18 on 08/02/2015. INR 1.0. UA negative for UTI. CXR were normal. CT Head normal. Hemoccult + on exam. CBC/BMP: 11/12/17 1008 11/12/17 0345 Significant Findings Laboratory Tests Test 11/10/17 05:45 11/10/17 07:55 11/11/17 19:42 11/12/17 03:45 Blood Urea Nitrogen 22 MG/DL (7-18) Total Protein 6.2 GM/DL (6.4-8.2) 5.8 GM/DL (6.4-8.2) Albumin 2.9 GM/DL (3.4-5.0) Calcium Level 8.1 MG/DL (8.5-10.1) 8.0 MG/DL (8.5-10.1) Phosphorus Level 2.1 MG/DL (2.5-4.9) Aspartate Amino Transf (AST/SGOT) 40 U/L (15-37) Estimat Glomerular Filtration Rate 59 ML/MIN (>89) 66 ML/MIN (>89) Iron Level 29 MCG/DL (65-175) Percent Iron Saturation 7.9 % (20-50) Ferritin 19 NG/ML (26-388) Folate GREATER THAN 20.0 NG/ML White Blood Count 3.3 TH/MM3 (4.0-11.0) 3.8 TH/MM3 (4.0-11.0) Red Blood Count 4.11 MIL/MM3 (4.50-5.90) 3.99 MIL/MM3 (4.50-5.90) 3.52 MIL/MM3 (4.50-5.90) Hemoglobin 9.6 GM/DL (13.0-17.0) 9.5 GM/DL (13.0-17.0) 8.3 GM/DL (13.0-17.0) Hematocrit 30.3 % (39.0-51.0) 29.0 % (39.0-51.0) 25.9 % (39.0-51.0) Mean Corpuscular Volume 73.7 FL (80.0-100.0) 72.7 FL (80.0-100.0) 73.6 FL (80.0-100.0) Mean Corpuscular Hemoglobin 23.5 PG (27.0-34.0) 23.8 PG (27.0-34.0) 23.6 PG (27.0-34.0) Mean Corpuscular Hemoglobin Concent 31.8 % (32.0-36.0) Red Cell Distribution Width 18.4 % (11.6-17.2) 18.2 % (11.6-17.2) 18.1 % (11.6-17.2) Monocytes (%) (Auto) 13.4 % (0.0-8.0) Eosinophils (%) (Auto) 6.3 % (0.0-4.0) Neutrophils # (Auto) 1.7 TH/MM3 (1.8-7.7) Lymphocytes # (Auto) 0.8 TH/MM3 (1.0-4.8) 0.9 TH/MM3 (1.0-4.8) Neutrophils (%) (Auto) 72.4 % (16.0-70.0) Mean Platelet Volume 6.9 FL (7.0-11.0) Potassium Level 3.4 MEQ/L (3.5-5.1) Chloride Level 108 MEQ/L (98-107) Test 11/12/17 10:08 Hemoglobin 8.9 GM/DL (13.0-17.0) Hematocrit 28.1 % (39.0-51.0) Imaging Last Impressions Abdomen/Pelvis CT 11/10/17 0000 Signed Impressions: Service Date/Time: Friday, November 10, 2017 19:39 - CONCLUSION: 1. Mild hepatic steatosis. 2. Right renal cyst. 3. Moderate hiatal hernia. Raúl Mcghee MD Chest X-Ray 11/09/17 1424 Signed Impressions: Service Date/Time: Thursday, November 09, 2017 15:02 - CONCLUSION: Normal examination. Juan Verdugo MD Head CT 11/09/17 0000 Signed Impressions: Service Date/Time: Thursday, November 09, 2017 14:50 - CONCLUSION: Normal examination except for mild atrophy. The left maxillary sinus is nearly completely opacified. Extensive fluid in the left frontal sinus. Juan Verdugo MD PE at Discharge GENERAL: WDWN elderly male patient, in no acute distress. Awake and alert. Standing up at the bedside. Appears steady on his feet. HEENT: NC/AT. PERRLA, EOMI. No scleral icterus or conjunctival pallor. No lid lag or facial droop. Nose without any purulence of drainage. MMM. CARDIOVASCULAR: Regular rate and rhythm. Grade 2 systolic murmur appreciated. RESPIRATORY: Nonlabored. No obvious rhonchi or wheezing. Clear to auscultation. Breath sounds equal bilaterally. GASTROINTESTINAL: Abdomen soft, non-tender, nondistended. BS normal. MUSCULOSKELETAL: Extremities without clubbing, cyanosis, or edema. No obvious deformities. NEUROLOGICAL: Awake, alert and oriented x4. No focal neurologic deficits. Moving both upper and lower extremities spontaneously. Normal speech. PSYCH: Mood and affect appropriate. Normal judgment and insight. Pt update on day of discharge Follow-up on patient with GI bleed. Patient status post EGD/colonoscopy. He denies any nausea, vomiting abdominal pain. States he has had a bowel movement this morning but he does not know if he had any blood in it. He denies any chest pain or shortness of breath. Patient able to tolerate soft diet. Hemoglobin improved. Discussed with Gabbi GARCIA for GI who cleared patient for discharge from GI standpoint. Hospital Course Patient admitted with GI bleed. CT of the abdomen and pelvis revealed mild hepatic steatosis, right renal cyst and moderate hiatal hernia. Hemoccult was positive in the ED. Patient started on Protonix twice daily and GI consult requested. Patient also had complaints of weakness which was felt to be secondary to symptomatic anemia. Patient noticed to have acute kidney injury with a creatinine of 1.40 which was treated with IV hydration. UA was negative for UTI. Patient underwent EGD with dilatation, colonoscopy revealing esophageal nodule, diverticulosis, polyp colon, hemorrhoids. Biopsies were taken and pending at the time of patient's discharge. Patient's diet was advanced with good toleration. Patient had no recurrence of rectal bleeding. His hemoglobin remained stable. Iron studies were indicative of iron deficiency anemia and patient was started on oral iron repletion. He was also noted to have hypokalemia which was treated with oral potassium and hypophosphatemia treated with oral phosphate repletion. Patient also had a low normal vitamin B12 level of 267 and was given 1000mcg B12 injection. Patient's kidney function improved with creatinine 1.07 and GFR of 66. Patient was seen in consultation by both physical therapy and Occupational Therapy who did not identify any needs following discharge. Patient was cleared for discharge from GI standpoint. Patient was instructed on Mediterranean diet and to continue on Protonix 40 mg daily. Patient instructed to follow-up with his primary care physician and with GI for biopsy results following discharge. Pt Condition on Discharge: Stable Discharge Disposition: Discharge Home Discharge Time: > 30 minutes Discharge Instructions DIET: Follow Instructions for: Heart Healthy Diet Additional Diet Instructions: Mediterranean diet Activities you can perform: Regular-No Restrictions Follow up Referrals: Gastroenterology - 1 Week PCP Follow-up - 1 Week New Orders: BASIC METABOLIC PROF - 2-3 Days CBC NO DIFF New Medications: Ferrous Sulfate (Ferosul) 325 Mg (65 Mg Iron) Tablet 325 MG PO BID for Iron deficiency anemia, #60 TAB Pantoprazole (Pantoprazole) 40 Mg Tab 40 MG PO DAILY for GERD, #30 TAB Polyethylene Glycol 3350 Powder (Polyethylene Glycol 3350 Powder) 17 Gram Pow 17 GM PO DAILY for CONSTIPATION, #1 BOTTLE Potassium Phosphate-Sodium Phosphate (K-Phos Neutral) 155-852-130 Mg Tab 250 MG PO Q8HR for Low phosphorus, #6 TAB Continued Medications: Lisinopril-Hctz (Lisinopril-Hctz) 20-12.5 Mg Tab 1 TAB PO DAILY for Blood Pressure Management, #30 TAB 0 Refills Paroxetine HCl (Paxil) 40 Mg Tablet Comfort Dave Nov 12, 2017 17:07 Osman Hill DO November 18, 2017 17:13
== END 2017-11-12 18:06 | disposition home or self-care (01) ==
LOC: NEPC 13:42 → NEDA 18:18 → NEPFCDU 19:29
PROVIDERS: ADMIT Hospitalist; ATTEND Hospitalist
DX: K92.2 Gastrointestinal hemorrhage, unspecified (principal); R51 Headache; R42 Dizziness and giddiness; R11.0 Nausea; D50.9 Iron deficiency anemia, unspecified; E83.39 Other disorders of phosphorus metabolism; N28.9 Disorder of kidney and ureter, unspecified; R53.1 Weakness; N17.9 Acute kidney failure, unspecified; I10 Essential (primary) hypertension; E78.5 Hyperlipidemia, unspecified; K44.9 Diaphragmatic hernia without obstruction or gangrene; K59.00 Constipation, unspecified; K76.0 Fatty (change of) liver, not elsewhere classified; N28.1 Cyst of kidney, acquired; K57.30 Diverticulosis of large intestine without perforation or abscess without bleeding; K64.8 Other hemorrhoids; K63.5 Polyp of colon; R47.02 Dysphasia; D61.818 Other pancytopenia; E87.6 Hypokalemia; K22.2 Esophageal obstruction; H35.30 Unspecified macular degeneration; F41.9 Anxiety disorder, unspecified; F32.9 Major depressive disorder, single episode, unspecified
CPT/HCPCS: 00813; 43239; 43248; 45380; 70450; 71045; 74177; 80048; 80053; 81001; 82607; 82728; 82746; 83036; 83540; 83550; 83735; 84100; 84155; 84439; 84443; 85014; 85018; 85025; 85027; 85610; 85730; 88305; 93005; 96361; 96374; 97162; 97166; 99285; C1769; G0378; G8987; G8988; G8989; J2405; J2765; J3420; J7030; J7040; J7120; Q9963; Q9967